=== PATIENT | male | born 1970 | race Caucasian/White ===

== ENCOUNTER 2022-10-12 19:00 | Emergency (ER) | payer MEDICARE, SELFPAY ==
[2022-10-12 19:10] VITALS: BP 124/77; PULSE 77; RESP 16; TEMP 36.4; O2SAT 100
--- NOTE | 2022-10-12 19:33 | ED.GENADULT ---
HPI - General Adult General Chief complaint: Dental/Oral Stated complaint: Abcess Tooth Source: patient Mode of arrival: ambulatory Limitations: no limitations History of Present Illness HPI narrative: Patient presents for evaluation of right upper dental pain for last 5 days. Pain is intermittent, throbbing, 6/10 severity. No fever, chills, nausea, vomiting. He has been taking Tylenol and aspirin for symptoms. He does smoke approximately a quarter pack per day. No additional complaints or concerns. Related Data Allergies Allergy/AdvReac Type Severity Reaction Status Date / Time Penicillins Allergy Unknown Verified 01/02/17 09:37 Review of Systems Review of Systems: CONSTITUTIONAL: Denies fever, chills, or sweats. EYES: Denies visual changes, redness, or discharge. ENT: Reports right upper dental pain. Denies rhinorrhea, congestion, sore throat, or otalgia. CARDIOVASCULAR: Denies chest pain, palpitations, or edema. RESPIRATORY: Denies cough or dyspnea. GASTROINTESTINAL: Denies abdominal pain, nausea, vomiting, or diarrhea. GENITOURINARY: Denies dysuria or hematuria. SKIN: Denies rash or itching. MUSCULOSKELETAL: Denies back pain, joint pain, or myalgia. NEUROLOGIC: Denies headache, numbness, dizziness, or weakness. PSYCHIATRIC: Denies anxiety or depression. [facility] Past Medical History Medical History No pertinent past medical history Surgical History Surgical History History of appendectomy History of cholecystectomy History of exploratory laparotomy Family History Family History Sibling Family history of chronic obstructive pulmonary disease Grandparent Family history of lung cancer Social History Social History (Updated 10/12/22 @ 19:36 by LARISSA YuanP, ) Smoking packs per day: 0.25 Smoking cigarettes per day: 5.0 Smoking status: Current every day smoker Second hand tobacco smoke exposure: Yes Alcohol intake: never Substance use: never Living arrangements: with family Gender identity (if verbalized by the patient): Male Sexual Orientation (if Verbalized by the Patient): Straight or Heterosexual Spiritual care concerns: No Exam Narrative: GENERAL: Well-appearing, well-nourished, and in no acute distress. HEAD: Normocephalic, atraumatic. EYES: PERRLA and EOMI. ENT: Nares clear, no rhinorrhea or epistaxis. Mucous membranes moist. Oropharynx without tonsillar hypertrophy exudate or other lesions. Tooth #4 is absent. There are metallic fillings noted to several teeth. There is no visible or drainable fluid collection. Bilateral TMs pearly whitehead nonbulging NECK: Supple. No adenopathy or masses. No carotid bruits or JVD CHEST: Clear to auscultation. No respiratory distress. No wheezes rales or rhonchi HEART: Regular rate and rhythm. No murmur heard. Normal peripheral pulses. ABDOMEN: Soft, nontender, nondistended, normal active bowel sounds. EXTREMITIES: Normal range of motion. No edema. SKIN: Warm, dry, no rash. NEURO: No focal deficits. Alert and oriented x3. PSYCH: Normal mood and affect. Course Course Emergency Course: This is a 51-year-old male who presented for evaluation of right upper dental pain. He has overall poor dentition with multiple fillings present. I do not appreciate a visible or palpable drainable fluid collection but he could have an early infection. Will cover with clindamycin. Ibuprofen for pain. Encouraged smoking cessation. Follow up with primary provider. Go to the ER for difficulty breathing or swallowing. Pt in agreement with plan of care. Level of Care: Express Care Visit Vital Signs Vital signs: Vital Signs Temperature 36.4 C 10/12/22 19:10 Pulse Rate 77 10/12/22 19:10 Respiratory Rate 16 10/12/22 19:10 Blood Pressure 124/77
== END 2022-10-12 19:31 | disposition home or self-care (01) ==
PROVIDERS: Emergency Provider Nurse Practitioner
DX: K08.89 Other specified disorders of teeth and supporting structures (principal); F17.210 Nicotine dependence, cigarettes, uncomplicated
CPT/HCPCS: 99213; G0463

== ENCOUNTER 2023-11-04 13:26 | Emergency (ER) | payer MEDICARE, MEDICAID, SELFPAY ==
[2023-11-04 13:45] VITALS: BP 144/88; PULSE 89; RESP 20; TEMP 36.9; O2SAT 99
--- NOTE | 2023-11-04 14:26 | ED.SKABFB ---
HPI - Skin/Abscess/Foreign Bdy General Chief complaint: Skin/Abscess/Foreign Body Stated complaint: Insect Bite/Right Leg Source: patient Mode of arrival: ambulatory Limitations: no limitations History of Present Illness HPI narrative: 52-year-old male presented for complaint of wound to the right lower leg. First noticed 2 days ago. He states this started as a blister and may have ruptured. Has not had any treatment prior to arrival. He thinks it is a brown recluse bite. Related Data Allergies Allergy/AdvReac Type Severity Reaction Status Date / Time Penicillins Allergy Unknown Unknown Verified 11/04/23 14:10 Review of Systems Review of Systems: CONSTITUTIONAL: Denies body aches, fever, chills, or sweats. EYES: Denies visual changes, redness, or discharge. ENT: Denies rhinorrhea, congestion CARDIOVASCULAR: Denies chest pain, palpitations, or edema. RESPIRATORY: Denies cough or dyspnea. GASTROINTESTINAL: Denies abdominal pain, nausea, vomiting, or diarrhea. SKIN: reports right lower leg skin wound MUSCULOSKELETAL: Denies back pain, joint pain, or myalgia. NEUROLOGIC: Denies headache, numbness, tingling, or weakness. [facility] Past Medical History Medical History No pertinent past medical history Surgical History Surgical History History of appendectomy History of cholecystectomy History of exploratory laparotomy Family History Family History Sibling Family history of chronic obstructive pulmonary disease Grandparent Family history of lung cancer Social History Social History Smoking packs per day: 0.25 Smoking cigarettes per day: 5.0 Smoking status: Current every day smoker Second hand tobacco smoke exposure: Yes Alcohol intake: never Substance use: never Living arrangements: with family Gender identity (if verbalized by the patient): Male Sexual Orientation (if Verbalized by the Patient): Straight or Heterosexual Spiritual care concerns: No Comments At time of signature, I have reviewed and agree with nursing past medical, surgical, social and family history unless otherwise noted. Please see nursing chart for further information. There is no relevant family history pertinent to the presenting complaint Exam Narrative: GENERAL: Well-appearing HEAD: Normocephalic, atraumatic. EYES: conjunctivae clear, and EOMI. ENT: Mucous membranes moist. Oropharynx without edema, erythema or lesions. NECK: Supple. No lymphadenopathy CHEST: Clear to auscultation. HEART: Regular rate and rhythm. SKIN: Warm, dry. right lateral lower leg with round ulcerated skin approx 1.5cmx1.5cm, no active drainage , fluctuance, or swelling, nontender NEURO: Alert and oriented x3. Course Course Emergency Course: Patient is aware of diagnosis, understands and agrees to treatment plan. Anticipatory guidance given. Patient agrees to follow-up as directed and is aware of reasons to seek care at the emergency department. Portions of this record may have been created with voice recognition software Level of Care: Express Care Visit Vital Signs Vital signs: Vital Signs Temperature 98.5 F 11/04/23 13:45 Pulse Rate 89 11/04/23 13:45 Respiratory Rate 20 11/04/23 13:45 Blood Pressure 144/88 H 11/04/23 13:45 Pulse Oximetry 99 11/04/23 13:45 Oxygen Delivery Room Air 11/04/23 13:45 Temperature 98.5 F 11/04/23 13:45 Pulse Rate 89 11/04/23 13:45 Respiratory Rate 20 11/04/23 13:45 Blood Pressure 144/88 H 11/04/23 13:45 Pulse Oximetry 99 11/04/23 13:45 Oxygen Delivery Room Air 11/04/23 13:45 Reviewed MDM - Skin/Abscess/Foreign Bdy MDM Narrative Medical decision making narrative: Discussed physical exam findings. Advised supportive m
== END 2023-11-04 14:30 | disposition home or self-care (01) ==
PROVIDERS: Emergency Provider Nurse Practitioner Family
DX: S81.801A Unspecified open wound, right lower leg, initial encounter (principal); X58.XXXA Exposure to other specified factors, initial encounter; F17.210 Nicotine dependence, cigarettes, uncomplicated
CPT/HCPCS: 99213; G0463

== ENCOUNTER 2024-07-30 19:52 | Emergency (ER) | payer MEDICAID, SELFPAY ==
--- OUTSIDE RECORDS SUMMARY | 2024-07-30 19:55 | XMS_ITS | Encounter Summary ---
Author Organization [facility] Healthcare Address [address] [place] [address] Care Team Providers Care Photographic Engineer Name Role Phone Mendez Daugherty MD Primary Care Provider [phone] Kelli Breen Unavailable No, Physician Primary Care Provider [phone] Encounter Details Date Type Department Care Team (Late st Contact Info) Description 12/20/2019 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 02/03/2020 02/03/2020 02/17/2020 3:0 7 AM CDT documented as of this encounter Care Teams Photographic Engineer Relationship Specialty Start Date End Date Mendez Daugherty MD [address] [address] PCP - General 12/20/19 09/12/22 No, Physician PCP - General 09/13/22 Kelli Breen Book Illustrator Addiction Medicine 05/15/20 09/12/22 documented as of this encounter
--- OUTSIDE RECORDS SUMMARY | 2024-07-30 19:55 | XMS_ITS | Clinical Summary ---
Author Organization [facility] Address [address] [place] [address] Care Team Providers Care Associate Professor Of Physics Name Role Phone No, Physician Primary Care Provider [phone] Allergies Active Allergy Reactions Criticality Noted Date Comments Penicillins Medications traZODone (DESYREL) 100 mg tablet Take 100 mg by mouth nightly. 8 Active naloxone (NARCAN) 4 mg/actuation spray,non-aeros ol Administer 1 spray into affected nostril(s) as needed for opioid reversal 1 each 0 Active cloNIDine (CATAPRES) 0.1 mg tablet Take 0.1 mg by mouth daily Active buprenorphine-n aloxone (SUBOXONE) 8-2 mg per SL tabletIndicatio ns:Opioid Dependence Place 1 tablet under the tongue daily 5 tablet 3 Active Active Problems Problem Noted Date Diagnosed Date Abdominal pain 02/02/2020 Overview (02/03/2020): Added automatically from request for surgery [id number] Immunizations Immunization Administration Dates Next Due Influenza, Trivalent, IM (MDV) 03/12/2016 Medical History Medical History Date Comments Drug abuse (HCC) Social History Tobacco Use Types Packs/Day Years Used Date Smoking Tobacco: Every Day Cigarettes 0.5 30 Smokeless Tobacco: Never Tobacco Cessation:Ready to Q uit: No; Counseling Given: No Alcohol Use Standard Drinks/Week Comments Not Currently 0 (1 standard drink = 0.6 oz pur e alcohol) Personal Safety Answer Date Recorded Getting School Help Needed Not on file 11/02 Sex and Gender Information Value Date Recorded Sex Assigned at Not on file Legal Sex Male 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 Gender Identity Not on file Sexual Orientation Not on file Obstetrics History Last Filed Vital Signs Vital Sign Reading Time Taken Comments Blood Pressure 156/96 09/13/2022 3:44 PM CDT Pulse 78 09/13/2022 3:40 PM CDT Temperature 36.1 C (96.9 F) 09/13/2022 1:26 PM CDT Respiratory Rate 18 09/13/2022 3:40 PM CDT Oxygen Saturation 97% 09/13/2022 3:40 PM CDT Inhaled Oxygen Concentration - - Weight 78.9 kg (174 lb) 09/13/2022 1:26 PM CDT Height 172.7 cm (5' 8 ) 09/13/2022 1:26 PM CDT Body Mass Index 26.46 09/13/2022 1:26 PM CDT Plan of Treatment Health Maintenance Due Date Last Done Comments Colon Cancer Screening-Colonoscopy 1970 Depression Screening 1970 Hepatitis C Screening 1970 Prostate Cancer Screening-PSA 1968 DTaP/Tdap/Td Vaccine (1 - Tdap) 12/08/1979 Hepatitis B Screening 1986 Regular Well Visit/Exam 18-64 1986 Pneumococcal vaccine <65 (1 of 2 - PCV) 12/08/1987 Zoster Vaccine (1 of 2) 2018 Influenza Vaccine (#1) 2024 03/12/2016 Insurance IDPA MEDICARE IDWI MEDICARE MEDICARE IDPA Advance Directives For more information, please contact: [phone] * Full Code (Latest Code Status on File) Date Activated Date Inactivated Comments 02/03/2020 2:07 AM 02/03/2020 3:50 PM * Full Code Date Activated Date Inactivated Comments 02/03/2020 2:06 AM 02/03/2020 2:07 AM Care Teams Associate Professor Of Physics Relationship Specialty Start Date End Date No, Physician PCP - General 09/13/22
--- OUTSIDE RECORDS SUMMARY | 2024-07-30 19:55 | XMS_ITS ---
Author Organization [facility] Address [address] [place] [address] Care Team Providers Care Chips Screen Tender Name Role Phone Aries Buckley Primary Care Provider [phone] Jose Lopez [phone] REASON FOR VISIT 4 week F/U Medications Medication SIG (Take, Route, Frequency, Duration) Notes Start Date End Date Status Tadalafil 10 MG 1 tablet as needed Orally Once a day for 30 days Tadalafil is curtesy refill till he can get into PCP. 03/24/2024 Active Atomoxetine HCl 40 MG 1 capsule in the morning Orally Once a day for 30 days Client to brass pickler today if possible. 12/18/2022 Active Lurasidone HCl 40 MG 1 tablet in the evening with food Orally Once a day for 30 days 03/24/2024 Active clonazePAM 0.5 MG 1 tablet Orally Once a day for 30 days As needed for panic attacks 05/30/2024 Active Naloxone HCl 8 MG/0.1ML 8 mg as needed for opioid overdose Nasally once Not-Taking Suboxone 8-2 MG 1 film under the tongue and allow to dissolve Sublingual three times daily 04/24/2023 Not-Taking Blood Pressure Monitoring Soln - as directed twice daily 04/24/2023 Not-Taking Social History Sex Assigned At : Social History Observation Description Sex Assigned At Male Encounters Encounter Location Date Provider Diagnosis [address] [place] [address] 07/11/2024 Jose Lopez Plan Of Treatment No Information Progress Notes * Gurpreet DEXTERDOB:1970 ( 53 yo M)Acc No.[id number]:07/11/2024 UNLOCKED PROGRESS NOTE Patient: Gurpreet GREY Provider: Alexandra Lopez DNP, [facility]- :1970 A ge:53 Y S ex:Male Date:07/11/2024 Address:[address] [place], [place] [id number] Pcp:Aries Buckley Subjective: * Chief Complaints: * 1 . 4 week F/U. * Medical History: * Medications: T aking Lurasidone HCl 40 MG Tablet 1 tablet in the evening with food Orally Once a day , Taking clonazePAM 0.5 MG Tablet 1 tablet Orally Once a day As needed for panic attacks, Taking Tadalafil 10 MG Tablet 1 tablet as needed Orally Once a day , Notes to Pharmacist: Tadalafil is curtesy refill till he can get into PCP., Taking Atomoxetine HCl 40 MG Capsule 1 capsule in the morning Orally Once a day , Notes to Pharmacist: Client to brass pickler today if possible., Not-Taking Blood Pressure Monitoring Soln - Kit as directed twice daily , Not-Taking Suboxone 8-2 MG Film 1 film under the tongue and allow to dissolve Sublingual three times daily , Not- Taking Naloxone HCl 8 MG/0.1ML Liquid 8 mg as needed for opioid overdose Nasally once Objective: * Vitals: Assessment: Plan: * Treatment: * * Electronic signature of Camilo Lopez , RANDELL, [id number] on 07/30/2024 at 07:55 PM ELECTROCHEMIST Sign off status: Pending * Provider: Alexandra Lopez DNP, [facility]- Date: 0 07/11/2024 Generated for Mary Lou elam/Jaqui/eTransmitting on: 0 07/30/2024 07:55 PM ELECTROCHEMIST
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
--- OUTSIDE RECORDS SUMMARY | 2024-07-30 19:55 | XMS_ITS | Clinical Summary ---
Author Organization [facility] Address [address] [place] [address] Phone Care Team Providers Care Transplant Nurse Practitioner Name Role Phone Provider, None Primary Care Provider UnavailKelli Lee APRN, PHOTO TECHNOLOGIST Unavailable Allergies Active Allergy Reactions Criticality Noted Date Comments Penicillin G Unknown 06/02/2024 Penicillins Unknown 11/04/2016 Medications SUBOXONE 8-2 MG FILM 0 7 Active DULoxetine (CYMBALTA) [address] Particles 7 Active QUEtiapine (SEROQUEL) 25 MG Tablet 8 Active Tadalafil (CIALIS) 5 MG Tablet Take 1 Tab by mouth as needed for Erectile Dysfunction. 30 Tab 8 Active clonazePAM (KlonoPIN) 0.5 MG Tablet Take 1 mg by mouth daily as needed. 5 Active lurasidone (LATUDA) 40 MG Tablet 1 tablet in the evening with food Orally Once a day for 30 days 4 Active atomoxetine (STRATTERA) 40 MG Capsule 1 capsule in the morning Orally Once a day for 30 days 3 Active ondansetron (Zofran) 4 MG TabletIndicatio ns:Nausea Take 1 Tablet by mouth every 8 hours as needed for Nausea - 1st line. 30 Tablet 5 Active Additional Information Patient not taking.Reported on 06/28/2024 ibuprofen (MOTRIN) 200 MG Tablet Take 400 mg by mouth every 8 hours as needed. Active aspirin 325 MG Tablet Take 325 mg by mouth daily. 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 [place] [address] [facility] [address] Kelli Valdovinos APRN, CNP 06/06/2024 [facility]phone [facility] [place] [address] [facility] [address] Kelli Valdovinos APRN, CNP Procedure 06/06/2024 Travel 06/02/2024 2:00 PM INSPECTOR QUALITY ASSURANCE Office Visit [facility] - [place] [address] [facility] [address] Kelli Valdovinos APRN, CNP Nausea (Primary Dx); Elevated liver enzymes; Abnormal CT scan, gastrointestinal tract; Alcohol-induced acute pancreatitis, unspecified complication status; Dilated bile duct; Dilated pancreatic duct; Elevated lipase; Alcohol use Discharge Disposition: Discharged to home or Selfcare 06/02/2024 Travel from Last 3 Months Family History Medical History Relation Name Comments No Known Problems Father No Known Problems Mother No Known Problems Sister Relation Name Status Comments Father Mother Alive Sister Alive Social History Tobacco Use Types Packs/Day Years Used Date Smoking Tobacco: Every Day Cigarettes Smokeless Tobacco: Never Tobacco Cessation:Ready to Q uit: No; Counseling Given: Yes Alcohol Use Standard Drinks/Week Comments Yes 4 (1 standard drink = 0.6 oz pur e alcohol) Sex and Gender Information Value Date Recorded Sex Assigned at Not on file Legal Sex Male 9:25 PM CDT Gender Identity Not on file Sexual Orientation Not on file Last Filed Vital Signs Vital Sign Reading Time Taken Comments Blood Pressure 146/80 06/02/2024 2:05 PM INSPECTOR QUALITY ASSURANCE Pulse 104 06/02/2024 2:05 PM INSPECTOR QUALITY ASSURANCE Temperature 35.9 C (96.6 F) 06/02/2024 2:05 PM INSPECTOR QUALITY ASSURANCE Respiratory Rate 16 06/02/2024 2:05 PM INSPECTOR QUALITY ASSURANCE Oxygen Saturation 97% 06/02/2024 2:05 PM INSPECTOR QUALITY ASSURANCE Inhaled Oxygen Concentration - - Weight 83.9 kg (185 lb) 06/28/2024 9:00 AM INSPECTOR QUALITY ASSURANCE Height 172.7 cm (5' 8 ) 06/28/2024 9:00 AM INSPECTOR QUALITY ASSURANCE Body Mass Index 28.13 06/28/2024 9:00 AM INSPECTOR QUALITY ASSURANCE Plan of Treatment Upcoming Encounters Date Type Department Care Team (Late st Contact Info) Description 08/02/2024 11:00 AM CDT [facility] [place] [address] Sánchez Serrano MD [address] [address] 08/02/2024 11:00 AM CDT - 08/02/2024 11:30 AM CDT [facility] 1 [facility] [place] [address] Sánchez Serrano MD [address] [address] COLONOSCOPY Scheduled Procedures Name Priority Associated Diagnoses Date/Ti me COLONOSCOPY ABNORMAL CT SCAN 08/02/2024 11:00 AM CDT Health Maintenance Due Date Last Done Comments TdaP Immunization 1968 Hepatitis B Immunization (1 of 3 - 19+ 3-dose series) 12/08/1987 Pneumococcal Immunization (5 0+ years) (1 of 2 - PCV) 12/08/1987 Colonoscopy 2013 Colorectal Cancer Screening 2013 Cologuard 2018 Immunochemical Fecal Occult Blood 2018 Zoster Immunization (1 of 2) 2018 PSA Discussion 12/08/2023 Influenza Immunization (#1) 2024 SARS-COV-2 Immunization ( - 2023-25 season) 2024 Respiratory Syncytial Virus (RSV) Immunization (Adult) (1 - 1-dose 75+ series) 12/08/2043 Hepatitis C Virus (HCV) Screening Completed 06/06/2024, 07/03/2017 Meningococcal Immunization (ACWY) Aged Out No longer eligible b ased on patient's age to complete this topic Rotavirus Immunization Aged Out No lo nger eligible based on patient's age to complete this topic Procedures Procedure Name Priority Date/Time Associated Diagnosis Comments CBC WITH AUTO DIFFERENTIAL Routine 06/06/2024 9:39 AM INSPECTOR QUALITY ASSURANCE Elevated liver enzymes CMP (COMPREHENSIVE METABOLIC PANEL) Routine 06/06/2024 9:39 AM INSPECTOR QUALITY ASSURANCE Elevated liver enzymes COMPLETE BLOOD COUNT (CBC) WITH DIFF Routine 06/06/2024 9:39 AM INSPECTOR QUALITY ASSURANCE Elevated liver enzymes HEPATITIS C ANTIBODY Routine 06/06/2024 9:39 AM INSPECTOR QUALITY ASSURANCE Elevated liver enzymes HEPATITIS B SURFACE ANTIGEN (HBSAG) Routine 06/06/2024 9:39 AM INSPECTOR QUALITY ASSURANCE Elevated liver enzymes HEPATITIS B SURFACE ANTIBODY (HBSAB) Routine 06/06/2024 9:39 AM INSPECTOR QUALITY ASSURANCE Elevated liver enzymes HEPATITIS A ANTIBODY IGG Routine 06/06/2024 9:39 AM INSPECTOR QUALITY ASSURANCE Elevated liver enzymes LIPASE Routine 06/06/2024 9:39 AM INSPECTOR QUALITY ASSURANCE Nausea Elevated liver enzymes FIBROTEST ACTITEST, SERUM, ROME FIBRO Routine 06/06/2024 9:39 AM INSPECTOR QUALITY ASSURANCE Elevated liver enzymes ALPHA FETOPROTEIN, TUMOR MARKER Routine 06/06/2024 9:39 AM INSPECTOR QUALITY ASSURANCE Elevated liver enzymes AMMONIA Routine 06/06/2024 9:39 AM INSPECTOR QUALITY ASSURANCE Elevated liver enzymes from Last 3 Months Results * HEPATITIS A ANTIBODY IGG (06/06/2024 9:39 AM INSPECTOR QUALITY ASSURANCE) Pathologist [facility] HEP A IGG ANTIBODY NON DETECTED NON DETECTED 06/06/2024 2:19 PM INSPECTOR QUALITY ASSURANCE [facility] Blood Venipuncture / Unknown 06/06/2024 9:39 AM INSPECTOR QUALITY ASSURANCE 06/06/2024 9:52 AM INSPECTOR QUALITY ASSURANCE Kelli Valdovinos MOLD TOOLING TECHNICIAN, PHOTO TECHNOLOGIST CHEMISTRY ORDERAB LES Final Result [facility] [address] [place] [address], [place] * (ABNORMAL) FIBROTEST ACTITEST, SERUM, ROME FIBRO (06/06/2024 9:39 AM INSPECTOR QUALITY ASSURANCE) [facility] FIBRO, FIBROTEST SCORE 0.45 10:03 AM [facility] [employer] FIBRO, FIBROTEST STAGE F1-F2 10:03 AM [facility] [employer] [facility] FIBRO, FIBROTEST INTERPRETATION minimal fibrosis 06/08/2024 10:03 AM [facility] [employer] Comment: FibroTest estimates liver fibrosis FibroTest Score Stage Interpretation 0.00-0.21 F0 no fibrosis 0.21-0.27 F0-F1 no fibrosis 0.27-0.31 F1 minimal fibrosis 0.31-0.48 F1-F2 minimal fibrosis 0.48-0.58 F2 moderate fibrosis 0.58-0.72 F3 advanced fibrosis 0.72-0.74 F3-F4 advanced fibrosis 0.74-1.00 F4 severe fibrosis (Cirrhosis) FIBRO, ACTITEST SCORE 0.68 10:03 AM [facility] [employer] FIBRO, ACTITEST GRADE A3 10:03 AM [facility] FIBRO, ACTITEST INTERPRETATION severe activity 06/08/2024 10:03 AM [facility] [employer] [facility] Comment: ActiTest estimates necroinflammatory activity ActiTest Score Grade Interpretation 0.00-0.17 A0 no activity 0.17-0.29 A0-A1 no activity 0.29-0.36 A1 minimal activity 0.36-0.52 A1-A2 minimal activity 0.52-0.60 A2 significant activity 0.60-0.62 A2-A3 significant activity 0.62-1.00 A3 severe activity FIBRO, FIBROTEST-ACTITEST COMMENT SEE NOTE 06/08/2024 10:03 AM [facility] Comment: The reliability of results is dependent on compliance with the preanalytical and analytical conditions recommended by [employer]. The tests have to be deferred for: acute hemolysis, acute hepatitis, acute inflammation, extra hepatic cholestasis. The advice of a specialist should be sought for interpretation in chronic hemolysis and Gilbert's syndrome. The test interpretation is not validated in liver transplant patients. Isolated extreme values of one of the components should lead to caution in interpreting the results. In case of discordance between a biopsy result and a test, it is recommended to seek advice of a specialist. The causes of these discordances could be due to a flaw of the test or to a flaw in the biopsy: i.e. a liver biopsy has a 33% variability rate for one fibrosis stage. FibroTest is interpretable for chronic hepatitis B and C, alcoholic and non alcoholic steatosis. ActiTest is interpretable for chronic hepatitis B and C. ADDITIONAL INFORMATION This test was developed and its performance characteristics determined by [facility] in a manner consistent with CLIA requirements. This test has not been cleared or approved by the U.S. Food and Drug Administration. FIBRO, BIOPREDICTIVE SERIAL NUMBER [id number] 06/08/2024 10:03 AM [facility] FIBRO, APOLIPOPROTEIN A1, S 204 >=120 mg/dL 06/08/2024 10:03 AM [facility] FIBRO, [id number], S 169 100 - 280 mg/dL 06/08/2024 10:03 AM [facility] FIBRO, HAPTOGLOBIN, S 111 30 - 200 mg/dL 06/08/2024 10:03 AM [facility] FIBRO, ALANINE AMINOTRANSFERASE 115(H) 7 - 55 U/L 06/08/2024 10:03 AM [facility] FIBRO, GAMMA GLUTAMYILRANSFERASE (GGT), S 1909(H) 8 - 61 U/L 06/08/2024 10:03 AM [facility] FIBRO, BILIRUBIN, TOTAL, S 0.5 0.0 - 1.2 mg/dL 06/08/2024 10:03 AM [facility] Comment: Test Performed by: [facility] [address] [place] [address] Out And Out Cigar Maker Hand: Dinorah Cook Ph.D.; CLIA# [id number] Test Performed by: [facility] [address] [place] [address] Out And Out Cigar Maker Hand: Dinorah Cook Ph.D.; CLIA# [id number] Blood Venipuncture / Unknown 06/06/2024 9:39 AM INSPECTOR QUALITY ASSURANCE 06/06/2024 9:52 AM INSPECTOR QUALITY ASSURANCE Kelli Valdovinos MOLD TOOLING TECHNICIAN, PHOTO TECHNOLOGIST LAB SEND OUT GENE TIC Final Result [facility] * (ABNORMAL) CBC WITH AUTO DIFFERENTIAL (06/06/2024 9:39 AM INSPECTOR QUALITY ASSURANCE) WBC 5.28 4.00 - 12.00 10(3)/mcL 06/06/2024 9:55 AM [facility] RBC 4.59 4.40 - 5.80 10(6)/mcL 06/06/2024 9:55 AM [facility] HEMOGLOBIN (HGB) 14.7 13.0 - 16.5 g/dL 06/06/2024 9:55 AM [facility] HEMATOCRIT (HCT) 43.4 38.0 - 50.0 % 06/06/2024 9:55 AM [facility] MCV 94.6 82.0 - 96.0 fL 06/06/2024 9:55 AM [facility] MCH 32.0 26.0 - 32.0 pg 06/06/2024 9:55 AM [facility] MCHC 33.9 31.0 - 36.0 g/dL 06/06/2024 9:55 AM [facility] PLATELET COUNT 144 140 - 440 10(3)/[facility] 06/06/2024 9:55 AM [facility] RDW 12.3 11.8 - 15.5 % 06/06/2024 9:55 AM [facility] MPV 9.9 8.0 - 12.6 fL 06/06/2024 9:55 AM [facility] NEUTROPHILS 69.7(H) 40.0 - 68.0 % 06/06/2024 9:55 AM [facility] LYMPHOCYTES 19.3 19.0 - 49.0 % 06/06/2024 9:55 AM [facility] MONOCYTES 8.9 3.0 - 13.0 % 06/06/2024 9:55 AM [facility] EOSINOPHILS 1.9 0.0 - 8.0 % 06/06/2024 9:55 AM [facility] BASOPHILS 0.2 0.0 - 1.0 % 06/06/2024 9:55 AM [facility] ABSOLUTE NEUTROPHILS 3.68 1.40 - 5.30 10(3)/[facility] 06/06/2024 9:55 AM [facility] ABSOLUTE LYMPHOCYTES 1.02 0.90 - 3.30 10(3)/[facility] 06/06/2024 9:55 AM [facility] ABSOLUTE MONOCYTES 0.47 0.10 - 0.90 10(3)/[facility] 06/06/2024 9:55 AM [facility] ABSOLUTE EOSINOPHIL 0.10 0.00 - 0.50 10(3)/[facility] 06/06/2024 9:55 AM [facility] ABSOLUTE BASOPHILS 0.01 0.00 - 0.10 10(3)/[facility] 06/06/2024 9:55 AM [facility] NRBC PER 100 WBC 0 06/06/19 9:55 AM INSPECTOR QUALITY ASSURANCE [facility] Blood Venipuncture / Unknown 06/06/2024 9:39 AM INSPECTOR QUALITY ASSURANCE 06/06/2024 9:52 AM INSPECTOR QUALITY ASSURANCE Kelli Valdovinos MOLD TOOLING TECHNICIAN, PHOTO TECHNOLOGIST HEMATOLOGY ORDERA BLES Final Result Performing Organization Address City/[facility]/ZIP Co de Phone Number [facility] [address] [place] [address] * LIPASE (06/06/2024 9:39 AM INSPECTOR QUALITY ASSURANCE) LIPASE 31 8 - 78 U/L 06/06/2024 10:16 AM INSPECTOR QUALITY ASSURANCE [facility] Blood Venipuncture / Unknown 06/06/2024 9:39 AM INSPECTOR QUALITY ASSURANCE 06/06/2024 9:52 AM INSPECTOR QUALITY ASSURANCE Kelli Valdovinos APRN, PHOTO TECHNOLOGIST CHEMISTRY ORDERAB LES Final Result Performing Organization Address [facility] Co de Phone Number [facility] [address] [place] [address] * HEPATITIS C ANTIBODY (06/06/2024 9:39 AM INSPECTOR QUALITY ASSURANCE) hepatitis C antibody 0.16 <1 S/CO 06/06/2024 2:21 PM INSPECTOR QUALITY ASSURANCE [facility] Comment: Signal/Cutoff ratio < 0.79 is Nondetected Signal/Cutoff ratio 0.80-0.99 is Grayzone Signal/Cutoff ratio > 0.99 is Detected Supplemental assays are recommended if signal/cutoff ratio is >/=1.00. Signal/cutoff ratio result >/= 5.00 is 97% predictive of positivity for recombinant immunoblot assay (RIBA) and will be reported to the [place] Department of Public Health as required. Blood Venipuncture / Unknown 06/06/2024 9:39 AM INSPECTOR QUALITY ASSURANCE 06/06/2024 9:52 AM INSPECTOR QUALITY ASSURANCE Kelli Valdovinos MOLD TOOLING TECHNICIAN, PHOTO TECHNOLOGIST CHEMISTRY ORDERAB LES Final Result Performing Organization Address City/[facility]/ZIP Co de Phone Number [facility] [address] [place] [address], [place] * HEPATITIS B SURFACE ANTIBODY (HBSAB) (06/06/2024 9:39 AM INSPECTOR QUALITY ASSURANCE) HEPATITIS B SURFACE ANTIBODY <8.00 mIU/mL 06/06/2024 2:38 PM INSPECTOR QUALITY ASSURANCE [facility] Comment:Individual is consid ered not immune to HBV infection. Blood Venipuncture / Unknown 06/06/2024 9:39 AM INSPECTOR QUALITY ASSURANCE 06/06/2024 9:52 AM INSPECTOR QUALITY ASSURANCE Kelli Valdovinos MOLD TOOLING TECHNICIAN, PHOTO TECHNOLOGIST CHEMISTRY ORDERAB LES Final Result Performing Organization Address [facility] Co de Phone Number [facility] [address] [place] [address], [place] * HEPATITIS B SURFACE ANTIGEN (HBSAG) (06/06/2024 9:39 AM INSPECTOR QUALITY ASSURANCE) Pathologist [facility] HEPATITIS B SURFACE ANTIGEN NON DETECTED NON DETECTED 06/06/2024 10:33 AM INSPECTOR QUALITY ASSURANCE [facility] Comment:A nonreactive test r esult does not exclude the possibility of exposure to or infection with Hepatitis B virus. A nonreactive test result in individuals with prior exposure to hepatitis B may be due to antigen levels below the detection limit of this assay or lack of antigen reactivity to the antibodies in this assay. Blood Venipuncture / Unknown 06/06/2024 9:39 AM INSPECTOR QUALITY ASSURANCE 06/06/2024 9:52 AM INSPECTOR QUALITY ASSURANCE Kelli Valdovinos MOLD TOOLING TECHNICIAN, PHOTO TECHNOLOGIST CHEMISTRY ORDERAB LES Final Result Performing Organization Address City/[facility]/ZIP Co de Phone Number [facility] [address] [place] [address] * (ABNORMAL) CMP (COMPREHENSIVE METABOLIC PANEL) (06/06/2024 9:39 AM INSPECTOR QUALITY ASSURANCE) Pathologist [facility] SODIUM 139 136 - 145 mmol/L 06/06/2024 10:16 AM [facility] POTASSIUM 4.0 3.5 - 5.1 mmol/L 06/06/2024 10:16 AM [facility] CHLORIDE 105 98 - 107 mmol/L 06/06/2024 10:16 AM [facility] CO2, VENOUS 26 22 - 30 mmol/L 06/06/2024 10:16 AM [facility] ANION GAP 12.0 <18.0 mmol/L 06/06/2024 10:16 AM [facility] GLUCOSE 83 70 - 99 mg/dL 06/06/2024 10:16 AM [facility] BUN 10 8 - 26 mg/dL 06/06/2024 10:16 AM [facility] CREATININE, BLOOD 0.78 0.70 - 1.30 mg/dL 06/06/2024 10:16 AM [facility] BUN/CREATININE RATIO 13 12 - 20 ratio 06/06/2024 10:16 AM [facility] TOTAL PROTEIN 8.0 6.3 - 8.2 g/dL 06/06/2024 10:16 AM [facility] ALBUMIN 4.3 3.5 - 5.0 g/dL 06/06/2024 10:16 AM [facility] A/G RATIO 1.2 1.0 - 2.2 06/06/2024 10:16 AM [facility] CALCIUM 8.8 8.7 - 10.5 mg/dL 06/06/2024 10:16 AM [facility] T BILI 0.5 0.2 - 1.2 mg/dL 06/06/2024 10:16 AM [facility] SGOT (AST) 61(H) 5 - 34 U/L 06/06/2024 10:16 AM [facility] SGPT (ALT) 105(H) 0 - 55 U/L 06/06/2024 10:16 AM INSPECTOR QUALITY ASSURANCE [facility] ALKALINE PHOSPHATASE 237(H) 40 - 150 U/L 06/06/2024 10:16 AM [facility] IS THE PATIENT REQUIRED TO BE FASTING? No 06/06/2024 10:16 AM INSPECTOR QUALITY ASSURANCE [facility] GFR, ESTIMATED >60 >=60 06/06/2024 10:16 AM [facility] Comment: Creatinine Clearance is the preferred criteria for selecting drug dose adjustments in renally impaired patients. The GFR is provided as additional pertinent clinical information. GFR is reported in mL/min/1.73 sq m. Calculation based on the Chronic Kidney Disease Epidemiology Collaboration (CKD- EPI) equation refit without adjustment for race. GFR, EST. >60 >=60 025 10:16 AM [facility] GFR, EST. NONAFRICAN >60 >=60 06/06/2024 10:16 AM [facility] Blood Venipuncture / Unknown 06/06/2024 9:39 AM INSPECTOR QUALITY ASSURANCE 06/06/2024 9:52 AM INSPECTOR QUALITY ASSURANCE Kelli Valdovinos MOLD TOOLING TECHNICIAN, PHOTO TECHNOLOGIST CHEMISTRY ORDERAB LES Final Result [facility] [address] [place] [address] * AMMONIA (06/06/2024 9:39 AM INSPECTOR QUALITY ASSURANCE) AMMONIA 40 18 - 72 umol/L 06/06/2024 10:07 AM INSPECTOR QUALITY ASSURANCE [facility] Blood Venipuncture / Unknown 06/06/2024 9:39 AM INSPECTOR QUALITY ASSURANCE 06/06/2024 9:52 AM INSPECTOR QUALITY ASSURANCE Kelli Wagnerpdontrell MOLD TOOLING TECHNICIAN, PHOTO TECHNOLOGIST CHEMISTRY ORDERAB LES Final Result [facility] [address] [place] [address] * ALPHA FETOPROTEIN, TUMOR MARKER (06/06/2024 9:39 AM INSPECTOR QUALITY ASSURANCE) ALPHA FETOPROTEIN 3.6 0.0 - 8.8 ng/mL 06/06/2024 3:47 PM INSPECTOR QUALITY ASSURANCE [facility] Blood Venipuncture / Unknown 06/06/2024 9:39 AM INSPECTOR QUALITY ASSURANCE 06/06/2024 9:52 AM INSPECTOR QUALITY ASSURANCE us Kelli Valdovinos APRN, CNP CHEMISTRY ORDERAB LES Final Result [facility] [address] [place] [address], from Last 3 Months Insurance MEDICAID [place] Care Teams Transplant Nurse Practitioner Relationship Specialty Start Date End Date Provider, None [place] PCP - General 11/22/20 Kelli Valdovinos APRN, CNP [address] [place] [address] Nurse Practitioner Advanced Practice Nurse 06/02/24
--- OUTSIDE RECORDS SUMMARY | 2024-07-30 19:56 | XMS_ITS | Continuity of Care Document ---
Author Organization [facility] Address [address] [place] [address] [place] [address] Phone Care Team Providers Care Strategic Communications Manager Name Role Phone Lamont Pittman DO Unavailable Unavailable Advance Directives Directive Yes / No Effective Date File Name No Information Encounters Encounter Description Practice Location Reason(s) For Visit Diagnoses Date Provider Providers Copied on Encounter [facility], [address], [place], [place], [id number], [place] tel:[phone] [facility] No Information Zain Motta. [address] [place], [address], [place]. tel: [phone] Family History Family Member Type Diagnosis Age At Onset No Information Payers Payer name Insurance type Covered libertarian ID Authoriza tion(s) No Information Social History Type Description Quantity Date Captured Comments Sex Male Smoking Status No Information Chief Complaint And Reason For Visit No Information Reason For Referral Reason For Referral No Information History Of Present Illness Encounter Date Complaint History Of Prese nt Illness No Information Functional Status Date Functional Assessmen t No Information Instructions Date Instruction Additional Infor mation No Information Assessments Type Assessment Date No Information Patient Care Teams Name Effective Dates (start - stop) Status Members No Information
--- OUTSIDE RECORDS SUMMARY | 2024-07-30 19:56 | XMS_ITS | Continuity of Care Document ---
Author Organization [facility] Address [address] [place] [address] [place] [address] Phone Care Team Providers Care Utility Pipe Layer Name Role Phone Lamont Pittman DO Unavailable Unavailable Advance Directives Directive Yes / No Effective Date File Name No Information Encounters Encounter Description Practice Location Reason(s) For Visit Diagnoses Date Provider Providers Copied on Encounter [facility], [address], [place], [place], [id number], [place] tel:[phone] [facility] No Information Zain Motta. [address] [place], [address], [place]. tel: [phone] Family History Family Member Type Diagnosis Age At Onset No Information Payers Payer name Insurance type Covered democrat ID Authoriza tion(s) No Information Social History [...]
--- OUTSIDE RECORDS SUMMARY | 2024-07-30 19:56 | XMS_ITS | Referral Summary ---
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 MEDICARE [facility] MEDICARE MEDICARE [facility] Advance Directives For more information, please contact: [phone] * Full Code (Latest Code Status on File) Date Activated Date Inactivated Comments 02/03/2020 2:07 AM 02/03/2020 3:50 PM * Full Code Date Activated Date Inactivated Comments 02/03/2020 2:06 AM 02/03/2020 2:07 AM Care Teams Greige Mender Relationship Specialty Start Date End Date No, Physician PCP - General 09/13/22
--- OUTSIDE RECORDS SUMMARY | 2024-07-30 19:56 | XMS_ITS ---
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 Moderate LANGUAGE Appropriate- WNL
--- OUTSIDE RECORDS SUMMARY | 2024-07-30 19:56 | XMS_ITS ---
Author Organization Replaced by [facility] Address [address] [place] [address] Care Team Providers Care Bowling Pin Refinisher Name Role Phone Aries Buckley Primary Care Provider [phone] Jose Lopez [phone] REASON FOR VISIT refills Social History Sex Assigned At : Social History Observation Description Sex Assigned At Male Encounters Encounter Location Date Provider Diagnosis [address] [place] [address] 06/30/2024 Jose Lopez Plan Of Treatment No Information Progress Notes * Gurpreet DEXTERDOB:1970 ( 53 yo M)Acc No.[id number]:06/30/2024 Patient: Gurpreet GREY :1970 A ge:53 Y S ex:Male Address:[address] [address], [place], [address] * true * Date: Generated for Mary Lou elam/Jaqui/eTransmitting on: 0 07/30/2024 07:55 PM [employer] CHIEF CLERK
[2024-07-30 20:06] VITALS: BP 131/73; PULSE 95; RESP 16; TEMP 36.7; O2SAT 98
--- NOTE | 2024-07-30 21:13 | ED.GENADULT ---
HPI - General Adult General Chief complaint: Dental/Oral Stated complaint: sores on tongue/tooth pain Source: patient Mode of arrival: ambulatory Limitations: no limitations History of Present Illness HPI narrative: Patient presents for evaluation of left lower dental pain and swelling for the last 3-4 days. Pain is constant, 6/10 severity. No fever, chills, nausea, vomiting. He took ibuprofen for symptoms. He smokes a quarter pack per day Related Data Allergies Allergy/AdvReac Type Severity Reaction Status Date / Time Penicillins Allergy Unknown Unknown Verified 07/30/24 20:09 Review of Systems Review of Systems: CONSTITUTIONAL: Denies fever, chills, or sweats. EYES: Denies visual changes, redness, or discharge. ENT: Reports left lower dental pain CARDIOVASCULAR: Denies chest pain, palpitations, or edema. RESPIRATORY: Denies cough or dyspnea. GASTROINTESTINAL: Denies abdominal pain, nausea, vomiting, or diarrhea. GENITOURINARY: Denies dysuria or hematuria. SKIN: Denies rash or itching. MUSCULOSKELETAL: Denies back pain, joint pain, or myalgia. NEUROLOGIC: Denies headache, numbness, dizziness, or weakness. PSYCHIATRIC: Denies anxiety or depression. PMFSH Past Medical History Medical History No pertinent past medical history Surgical History Surgical History History of exploratory laparotomy History of cholecystectomy History of appendectomy Family History Family History Sibling Family history of chronic obstructive pulmonary disease Grandparent Family history of lung cancer Social History Social History Smoking packs per day: 0.25 Smoking cigarettes per day: 5.0 Smoking status: Current every day smoker Second hand tobacco smoke exposure: Yes Alcohol intake: never Substance use: never Living arrangements: with family Gender identity (if verbalized by the patient): Male Sexual Orientation (if Verbalized by the Patient): Straight or Heterosexual Spiritual care concerns: No Exam Narrative: GENERAL: Well-appearing, well-nourished, and in no acute distress. HEAD: Normocephalic, atraumatic. EYES: PERRLA and EOMI. ENT: Nares clear, no rhinorrhea or epistaxis. Mucous membranes moist. Overall poor dentition. Several missing teeth. Several fillings present. There is tenderness in the gumline on the left lower side without visible or palpable abscess. Oropharynx without tonsillar hypertrophy exudate or other lesions. Bilateral TMs pearly whitehead nonbulging NECK: Supple. No adenopathy or masses. No carotid bruits or JVD CHEST: Clear to auscultation. No respiratory distress. No wheezes rales or rhonchi HEART: Regular rate and rhythm. No murmur heard. Normal peripheral pulses. ABDOMEN: Soft, nontender, nondistended, normal active bowel sounds. EXTREMITIES: Normal range of motion. No edema. SKIN: Warm, dry, no rash. NEURO: No focal deficits. Alert and oriented x3. PSYCH: Normal mood and affect. Course Course Emergency Course: This is a 53-year-old male who presented for evaluation of left lower dental pain and swelling. He has overall poor dental hygiene. Will dc with clindamycin. Increase hydration. OTC agents for symptom management. Follow up with dentist. Go to the ER for worsening symptoms. Pt in agreement with plan of care. Level of Care: Express Care Visit Vital Signs Vital signs: Vital Signs Temperature 36.7 C 07/30/24 20:06 Pulse Rate 95 07/30/24 20:06 Respiratory Rate 16 07/30/24 20:06 Blood Pressure 131/73 07/30/24 20:06 Pulse Oximetry 98 07/30/24 20:06 Oxygen Delivery Room Air 07/30/24 20:06 Temperature 36.7 C 07/30/24 20:06 Pulse Rate 95 07/30/24 20:06 Respiratory Rate 16 07/30/24 20:06 Blood Pressure 131/73 07/30/24 20:06 Pulse Oximetry 98 07/30/24 20:06 Oxygen Delivery Room Air 07/30/24 20:06 Medical Decision Making Vital Signs Vital Signs: Vital Signs Temperature 36.7 C 07/30/24 20:06 Pulse Rate 95 07/30/24 20:06 Respiratory Rate 16 07/30/24 20:06 Blood Pressure 131/73 07/30/24 20:06 Pulse Oximetry 98 07/30/24 20:06 Oxygen Delivery Room Air 07/30/24 20:06 Temperature 36.7 C 07/30/24 20:06 Pulse Rate 95 07/30/24 20:06 Respiratory Rate 16 07/30/24 20:06 Blood Pressure 131/73 07/30/24 20:06 Pulse Oximetry 98 07/30/24 20:06 Oxygen Delivery Room Air 07/30/24 20:06 Discharge Plan Discharge Clinical Impression: Dental decay Patient Disposition: Home, Self-Care Condition: Stable Instructions: Antibiotic Form, Mouth Care (ED) Patient Language: Lebanese Prescriptions: New clindamycin HCl 300 mg capsule 300 mg PO Q6H Qty: 40 0RF Follow-up/Referrals: Jeronimo Ashley MD [Physician] - Time of Disposition: 21:13
== END 2024-07-30 21:15 | disposition home or self-care (01) ==
PROVIDERS: Emergency Provider Nurse Practitioner
DX: K02.9 Dental caries, unspecified (principal); F17.210 Nicotine dependence, cigarettes, uncomplicated
CPT/HCPCS: 99213; G0463